=== PATIENT | male | born 1970 | race Hispanic/Latino ===

== ENCOUNTER 2024-09-14 22:20 | Emergency (ER) | payer OTHER ==
[~2024-09-14] VITALS: Ht 167.6 cm; Wt 98.4 kg
[2024-09-14 22:22] VITALS: BP 133/90; PULSE 94; RESP 20; TEMP 98.4
[2024-09-14 22:48] LABS: BASOPHILS # (AUTO) 0.05 K/uL (0.00-0.20); BASOPHILS % (AUTO) 0.6 % (0.0-5.0); EOSINOPHILS # (AUTO) 0.07 K/uL (0.00-0.70); EOSINOPHILS % (AUTO) 0.8 % (0.0-8.0); HEMATOCRIT 44.3 % (42-54); IMMATURE GRANULOCYTE ABSOLUTE 0.02 K/uL (0-1); LYMPHOCYTES # (AUTO) 1.7 K/uL (1.0-4.8); LYMPHOCYTES % (AUTO) 19.7 % (21.0-51.0); MEAN CORPUSCULAR HEMOGLOBIN 32.4 pg (27.0-33.0); MEAN CORPUSCULAR HGB CONC 35.9 g/dL (32.0-36.0); MEAN CORPUSCULAR VOLUME 90.2 fL (79-99); MONOCYTES # (AUTO) 0.7 K/uL (0.1-1.0); MONOCYTES % (AUTO) 8.3 % (3.0-13.0); NEUTROPHILS # (AUTO) 6.1 K/uL (1.8-7.7); NEUTROPHILS % (AUTO) 70.4 % (40.0-77.0); PLATELET COUNT (AUTO) 212 K/uL (130-400); RED BLOOD CELL COUNT(AUTO) 4.91 MIL/uL (4.50-6.20); RED CELL DISTRIBUTION WIDTH 11.9 % (11.0-15.5); WHITE BLOOD COUNT (AUTO) 8.6 K/uL (4.8-10.8)
--- NOTE | 2024-09-14 22:48 | NUR ---
PATIENT REPORTS HE DOES NOT TAKE ANY PRESCRIBED MEDICATIONS
--- NOTE | 2024-09-14 22:56 | NUR ---
ABDOMINAL BINDER APPLIED TO ABDOMEN, PATIENT TOLERATED WELL
[2024-09-14 23:00] LABS: POTASSIUM 3.4 mmol/L (3.5-5.1)
--- NOTE | 2024-09-14 23:55 | ERN ---
ED Note History of Present Illness Stated Complaint: C/O ABD PAIN WITH N X V, DIARRHEA ONSET FRIDAY Chief Complaint: Abdominal Pain Time Seen by MD: 22:24 Allergies: Coded Allergies: No Known Allergies (Unverified Allergy, Unknown, 09/14/24) Past Medical History Dictation 54-year-old male with past medical history of surgical repair of hernias of months ago presents with abdominal pain and bulge in periumbilical region. Patient states that the pain has been worse for approximately approximately four days. The patient states that the pain is made worse when he walks or when he bears down. Patient denies fevers, nausea, vomiting diaphoresis, syncope, presyncope, productive cough, focal neurological deficits, change in bladder bowel functioning Past Medical History: Other Additional Past Medical Hx: HERNIA Surgical History: Other Surgical History Other: HERNIA REPAIR Review of System Dictation See HPI Initial Vital Sign VS Vital Signs Date Time Temp Pulse Resp B/P (MAP) Pulse Ox O2 Delivery O2 Flow Rate FiO2 09/14/24 22:22 98.4 94 20 133/90 95 Room Air Physical Exam Dictation General: No acute distress, elevated BMI Abdomen: Periumbilical hernia that is reducible, has been on peritoneal, albumin nondistended Results (Laboratory/Radiology) Laboratory/Radiology Laboratory Tests Test 09/14/24 22:45 White Blood Count 8.6 K/uL (4.8-10.8) Red Blood Count 4.91 MIL/uL (4.50-6.20) Hemoglobin 15.9 g/dL (14.0-18.0) Hematocrit 44.3 % (42-54) Mean Corpuscular Volume 90.2 fL (79-99) Mean Corpuscular Hemoglobin 32.4 pg (27.0-33.0) Mean Corpuscular Hemoglobin Concent 35.9 g/dL (32.0-36.0) Red Cell Distribution Width 11.9 % (11.0-15.5) Platelet Count 212 K/uL (130-400) Mean Platelet Volume 10.1 fL (7.5-10.5) Immature Granulocyte % (Auto) 0.2 % (0-1) Neutrophils (%) (Auto) 70.4 % (40.0-77.0) Lymphocytes (%) (Auto) 19.7 % (21.0-51.0) L Monocytes (%) (Auto) 8.3 % (3.0-13.0) Eosinophils (%) (Auto) 0.8 % (0.0-8.0) Basophils (%) (Auto) 0.6 % (0.0-5.0) Neutrophils # (Auto) 6.1 K/uL (1.8-7.7) Lymphocytes # (Auto) 1.7 K/uL (1.0-4.8) Monocytes # (Auto) 0.7 K/uL (0.1-1.0) Eosinophils # (Auto) 0.07 K/uL (0.00-0.70) Basophils # (Auto) 0.05 K/uL (0.00-0.20) Absolute Immature Granulocyte (auto 0.02 K/uL (0-1) Nucleated Red Blood Cells 0.0 % (0.0-0.19) Sodium Level 138 mmol/L (136-145) Potassium Level 3.4 mmol/L (3.5-5.1) L Chloride Level 102 mmol/L (101-111) Carbon Dioxide Level 27 mmol/L (21-32) Blood Urea Nitrogen 10 mg/dL (7-18) Creatinine 1.0 mg/dL (0.5-1.3) Glomerular Filtration Rate Calc 90 mL/min (>90) Random Glucose 140 mg/dL (70-105) H Total Calcium 9.1 mg/dL (8.5-10.1) Lipase 22 U/L (16-77) ED Course ED Course Orders Procedure Category Date Status Time Cbc With Differential LAB 09/14/24 Complete 22:25 Lipase LAB 09/14/24 Complete 22:25 Basic Metabolic Panel LAB 09/14/24 Complete 22:25 *Nursing CPOE 09/14/24 Transmitted Communication: 22:52 Vital Signs Date Time Temp Pulse Resp B/P (MAP) Pulse Ox O2 Delivery O2 Flow Rate FiO2 09/14/24 22:22 98.4 94 20 133/90 95 Room Air Medical Decision Making MDM ddx: Strangulated hernia versus incarcerated hernia versus small-bowel obst ruction versus viral gastroenteritis versus reducible hernia CBC shows size within normal limits. Low clinical suspicion for infection. Lipase within normal limits. Out acute pancreatitis. Kidney function within normal limits per dad MORE. On physical exam, patient's hernia is reproducible, which alleviates pain. Low clinical suspicion for small-bowel obstruction. Series CT of the abdomen and pelvis. Patient is tolerating p.o. and having bowel movements. No indication for imaging at this time. Patient placed in abdominal binder. Patient has abdominal binder at home, which he does not wear. Patient is noncompliant. The symptoms have been going on for several months. Patient states that he came to the emergency department today because he feels t hat he will take him a long time to cath has been the surgeon to repair his hernia. Explained to patient and patient's family that the fact that there is no incarceration strangulation means that this is not emergent and can be managed outpatient. Patient is insisting that because surgeon tonight to fix this hernia. Explained the patient that there was not likely be happened. P atient placed on abdominal binder and discharged home with return precautions. Re-evaluation: Patient tolerating p.o. prior to discharge. Patient ambulatory. Patient well appearing. DX & DISP Disposition: Discharge Departure Impression: Primary Impression: Periumbilical hernia Condition: Stable Additional Instructions: Please return to emergency department immediately if you change in bowel function, can not pass gas, can not eat or drink, have continues nausea vomiting, unbearable pain or hernia becomes on reducible. Please follow up with General surgeon and extubate appointment for definitive repair Referrals: BALTA RUCKER MD (PCP) CIERRA ELDRIDGE MD, ROBERT M DO Sep 14, 2024 23:55
== END 2024-09-15 00:06 | disposition home or self-care (01) ==
LOC: EDH 22:20
DX: K42.9 Umbilical hernia without obstruction or gangrene (principal); Z98.890 Other specified postprocedural states
CPT/HCPCS: 36415; 80048; 83690; 85025; 99283